=== PATIENT | male | born 1965 | race Caucasian/White ===

== ENCOUNTER 2020-09-15 11:54 | Outpatient (REF) | payer BC, SELFPAY ==
--- NOTE | 2020-09-15 12:34 | XR_ITS ---
EXAMINATION: XR LUMBOSACRAL SPINE CLINICAL INFORMATION: Low back pain COMPARISON: None TECHNIQUE: Three views of the lumbosacral spine. FINDINGS: There are 5 [id number] lumbar vertebra. There is mild narrowing of the L5-S1 disc space. No acute fracture, spondylolisthesis, or spondylolysis identified. Sacroiliac joints unremarkable. XR/XR lumbar spine 2-3V IMPRESSION: Degenerative disc disease L5-S1 level.
[2020-09-15 13:42] LABS: MANUAL DIFF FLAG NO
[2020-09-15 13:43] LABS: Basophils Percent Auto 0.9 % (0-2); Eosinophils Absolute Auto 0.1 X10*3/uL (0.0-0.4); Eosinophils Percent Auto 2.2 % (0-4); Hematocrit 46.4 % (42-52); Hemoglobin 16.1 g/dl (14.0-18.0); Imm Gran Abs Auto 0.01 X10*3/uL (0.00-0.03); Imm Gran Pct Auto 0.2 % (0.0-0.4); Lymphocytes Absolute Auto 1.2 X10*3/uL (1.2-4.9); Lymphocytes Percent Auto 25.3 % (20-40); Mean Corpuscular HGB Conc 34.7 g/dl (31.0-36.0); Mean Corpuscular Hemoglobin 32.5 pg (27.0-33.0); Mean Corpuscular Volume 93.5 fL (80-98); Mean Platelet Volume 10.2 fL (9.4-12.4); Monocytes Absolute Auto 0.4 X10*3/uL (0.1-1.2); Monocytes Percent Auto 7.6 % (2-11); Neutrophils Absolute Auto 2.9 X10*3/uL (2.0-8.3); Neutrophils Percent Auto 63.8 % (45-73); Platelet Count 252 X10*3/uL (160-400); Red Blood Count 4.96 X10*6/uL (4.60-5.80); White Blood Count 4.6 X10*3/uL (4.8-10.8)
[2020-09-15 14:04] LABS: Glucose Urine UA NEG (NEG); Leukocyte Esterase Urine NEG (NEG); Nitrite Urine NEG (NEG); Specific Gravity - Urine >= 1.030 (1.005-1.025); Urine Blood NEG (NEG); Urine Ketones 15 MG/DL (NEG); Urine Protein 1+ MG/DL (NEG-TRACE)
[2020-09-15 14:05] LABS: Appearance Urine HAZY; Color Urine YELLOW
[2020-09-15 14:08] LABS: Alanine Aminotransferase 13 U/L (0-40); Albumin Level 4.7 g/dL (3.5-5.0); Alkaline Phosphatase 41 U/L (39-117); Anion Gap 11 (12-20); Aspartate Amino Transferase 19 U/L (5-37); Bilirubin Total 0.6 mg/dL (0.0-1.0); Blood Urea Nitrogen 16 mg/dL (9-16); Calcium 9.3 mg/dL (8.4-10.2); Carbon Dioxide 28 mmol/L (22-29); Chloride 103 mmol/L (96-108); Cholesterol 189 mg/dL; Estimated Glomerular Filt Rate > 60; Glucose Fasting 95 mg/dL (60-99); HDL Cholesterol 50 mg/dL; LDL Cholesterol Calculated 127 mg/dl; Potassium 4.4 mmol/l (3.3-5.1); Sodium 138 mmol/L (135-145); Total Protein 7.1 g/dL (6.5-8.0); Triglycerides 63 mg/dL
[2020-09-15 14:15] LABS: Mucus Urine 2+ /LPF; Squamous Epithelial Cell Urine TRACE /LPF; WBC Urine 0-2 /HPF (0-4)
[2020-09-15 14:30] LABS: Prostate Specific Antigen Scr 0.52 ng/mL (<0.05-4.0)
== END 2020-09-15 11:55 | disposition home or self-care (01) ==
LOC: HO.10HDL 11:54
PROVIDERS: PCP Internal Medicine; Visit Provider Internal Medicine
DX: Z00.00 Encounter for general adult medical examination without abnormal findings (principal); M54.5 Low back pain
CPT/HCPCS: 36415; 72100; 80053; 80061; 81001; 84153; 85025; 87086

== ENCOUNTER 2022-08-05 12:08 | Outpatient (REF) | payer BC, SELFPAY ==
--- NOTE | ~2022-08-05 | XR_ITS ---
EXAMINATION: XR SHOULDER, LEFT CLINICAL INFORMATION: Left shoulder pain COMPARISON: None TECHNIQUE: AP external rotation, Grashey, scapular Y, and axillary views of the left shoulder. FINDINGS: There is mild loss of glenohumeral and AC joint space without any acute fracture, dislocation or loose bodies. The soft tissues are normal. XR/XR shoulder LT min 2V IMPRESSION: Mild degenerative changes left shoulder.
[2022-08-05 13:35] LABS: MANUAL DIFF FLAG NO
[2022-08-05 13:47] LABS: Basophils Percent Auto 0.5 % (0-2); Eosinophils Absolute Auto 0.1 X10*3/uL (0.0-0.4); Hematocrit 45.5 % (42.0-52.0); Hemoglobin 15.7 g/dl (14.0-18.0); Imm Gran Abs Auto 0.03 X10*3/uL (0.00-0.03); Imm Gran Pct Auto 0.5 % (0.0-0.4); Lymphocytes Percent Auto 16.2 % (20-40); Mean Corpuscular HGB Conc 34.5 g/dl (31.0-36.0); Mean Corpuscular Volume 95.6 fL (80.0-98.0); Monocytes Absolute Auto 0.4 X10*3/uL (0.1-1.2); Monocytes Percent Auto 6.4 % (2-11); Neutrophils Absolute Auto 4.6 x10*3/uL (2.0-8.3); Neutrophils Percent Auto 75.4 % (45-73); Platelet Count 254 X10*3/uL (160-400); Red Blood Count 4.76 X10*6/uL (4.60-5.80); Red Cell Distribution Width 13.1 % (11.0-16.0); White Blood Count 6.1 X10*3/uL (4.8-10.8)
[2022-08-05 14:15] LABS: Alanine Aminotransferase 21 U/L (0-40); Albumin Level 4.6 g/dL (3.5-5.0); Alkaline Phosphatase 43 U/L (39-117); Anion Gap 15 (12-20); Aspartate Amino Transferase 23 U/L (5-37); Bilirubin Total 0.7 mg/dL (0.0-1.0); Blood Urea Nitrogen 15 mg/dL (9-16); Calcium 9.6 mg/dL (8.4-10.2); Carbon Dioxide 27 mmol/L (22-29); Chloride 107 mmol/L (96-108); Cholesterol 201 mg/dL; Estimated Glomerular Filt Rate > 60; Glucose Fasting 93 mg/dL (60-99); HDL Cholesterol 54 mg/dL; LDL Cholesterol Calculated 136 mg/dl; Potassium 4.7 mmol/L (3.3-5.1); Sodium 144 mmol/L (135-145); Total Protein 6.7 g/dL (6.5-8.0); Triglycerides 55 mg/dL; Vitamin D 25-OH Total 25.9 ng/mL (>30)
== END 2022-08-05 12:09 | disposition home or self-care (01) ==
LOC: HO.10HDL 12:08
PROVIDERS: Visit Provider Internal Medicine
DX: Z00.00 Encounter for general adult medical examination without abnormal findings (principal); E55.9 Vitamin D deficiency, unspecified; M25.512 Pain in left shoulder
CPT/HCPCS: 36415; 73030; 80053; 80061; 82306; 85025

== ENCOUNTER 2024-09-04 15:29 | Outpatient (REF) | payer BC, SELFPAY ==
[2024-09-04 15:49] LABS: MANUAL DIFF FLAG NO
[2024-09-04 16:44] LABS: Basophils Percent Auto 0.5 % (0-2); Eosinophils Absolute Auto 0.1 X10*3/uL (0.0-0.4); Eosinophils Percent Auto 1.1 % (0-4); Hematocrit 43.5 % (42.0-52.0); Imm Gran Abs Auto 0.02 X10*3/uL (0.00-0.03); Imm Gran Pct Auto 0.4 % (0.0-0.4); Lymphocytes Absolute Auto 1.1 X10*3/uL (1.2-4.9); Lymphocytes Percent Auto 19.6 % (20-40); Mean Corpuscular HGB Conc 34.5 g/dl (31.0-36.0); Mean Corpuscular Hemoglobin 31.8 pg (27.0-33.0); Mean Corpuscular Volume 92.4 fL (80.0-98.0); Mean Platelet Volume 9.4 fL (9.4-12.4); Monocytes Absolute Auto 0.5 X10*3/uL (0.1-1.2); Monocytes Percent Auto 8.8 % (2-11); Neutrophils Percent Auto 69.6 % (45-73); Platelet Count 245 X10*3/uL (160-400); Red Blood Count 4.71 X10*6/uL (4.60-5.80); Red Cell Distribution Width 12.7 % (11.0-16.0); White Blood Count 5.7 X10*3/uL (4.8-10.8)
[2024-09-04 17:17] LABS: Albumin Level 4.4 g/dL (3.5-5.0); Anion Gap 14 (12-20); Aspartate Amino Transferase 26 U/L (5-37); Bilirubin Total 0.8 mg/dL (0.0-1.0); Blood Urea Nitrogen 22 mg/dL (9-16); Calcium 9.5 mg/dL (8.4-10.2); Carbon Dioxide 27 mmol/L (22-29); Chloride 102 mmol/L (96-108); Cholesterol 210 mg/dL (<200); Estimated Glomerular Filt Rate > 60; Glucose Fasting 95 mg/dL (60-99); HDL Cholesterol 59 mg/dL (>40); LDL Cholesterol Calculated 139 mg/dL (<100); Potassium 4.3 mmol/L (3.3-5.1); Sodium 139 mmol/L (135-145); Total Protein 6.7 g/dL (6.5-8.0); Triglycerides 63 mg/dL (<150)
[2024-09-04 17:37] LABS: Alanine Aminotransferase 21 U/L (0-40); Alkaline Phosphatase 41 U/L (39-117); Vitamin D 25-OH Total 21.1 ng/mL (>30)
== END 2024-09-04 15:30 | disposition home or self-care (01) ==
LOC: HO.LAB 15:29
PROVIDERS: PCP Internal Medicine; Visit Provider Internal Medicine
DX: E78.00 Pure hypercholesterolemia, unspecified (principal); K57.90 Diverticulosis of intestine, part unspecified, without perforation or abscess without bleeding; E55.9 Vitamin D deficiency, unspecified; Z12.5 Encounter for screening for malignant neoplasm of prostate
CPT/HCPCS: 36415; 80053; 80061; 82306; 84153; 85025

== ENCOUNTER 2024-12-04 14:48 | Outpatient (AMB) | payer BC, SELFPAY ==
--- NOTE | 2024-12-04 15:21 | AM.OFFWIN_ITS ---
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 He tried to call his PCP who could not see him and recommended zinc and vitamin-C, and Robitussin DM. He notes symptoms have been improving over the past 4-6 days. Then an increase in phlegm in the past 2 days again in his throat. He also notes with taking all this medication he feels a sense of claustrophobia, need to pace and anxiety. He denies any history of similar symptoms of anxiety. He did do 2 COVID test when he was more symptomatic which were negative. [facility] Social History Patient Tobacco Use Status: Never used Tobacco Review of Systems Const All systems reviewed & are unremarkable except as noted in HPI and below ENT Denies change in voice, Denies dysphagia, Reports post nasal drip, Denies sore throat, Denies throat swelling and Reports other (Denies voice change) GI Denies dysphagia Aller/Immun Denies throat swelling Physical Exam Vital Signs: Last Vital Signs Pulse 65 12/04/24 15:22 BP 124/80 12/04/24 15:22 Pulse Ox 95 12/04/24 15:22 Oxygen Delivery Method Room Air 12/04/24 15:22 BMI result Body Mass Index 22.3 Const General: cooperative, comfortable and no acute distress Orientation/consciousness: patient oriented x3 HEENT Head: Yes normal to inspection Ears: external ears normal and TM's normal bilaterally General nose exam: Normal external nose present and Normal nasal mucous membranes and turbinates present Face and sinus: Yes normal facial exam and Yes sinuses nontender Mouth: Normal oral and palatal mucosa present Throat: Yes posterior oropharynx normal and Yes tonsils normal Resp Effort & Inspection: normal respiratory effort Auscultation: clear to auscultation bilaterally Cardio Rate: regular rate Rhythm: regular rhythm Heart sounds: S1 normal heart sound present and S2 normal heart sound present Neuro General: patient oriented x3 Assessment & Plan Assessment & Plan (1) Acute respiratory infection: Code(s): J22 - Unspecified acute lower respiratory infection Plan: Symptoms seem to be resolving. Advised to discontinue Robitussin DM, zinc, vitamin-C as these might be contributing to his symptoms of restlessness especially the Robitussin. I did advised saline nasal spray or saline gargles as needed for postnasal drip. He could also try Mucinex single ingredient formulation if needed. I did advise him to make a follow-up with his PCP in the next few weeks for any persisting symptoms. He would also be a candidate for low-dose CT scanning with history of smoking he should discuss this with his PCP. Coding Level of Care Code New Pt Level 3 (40403) Diagnoses Acute respiratory infection J22
[2024-12-04 15:22] VITALS: BP 124/80; PULSE 65; O2SAT 95; BMI 22.3
--- OUTSIDE RECORDS SUMMARY | 2024-12-04 18:10 | XMS_ITS ---
Author Name [facility] Organization Unknown Care Team Organization Name Specialty Phone Email Start Date End Da te Office of the [employer] ([facility]) 08/10/2024
== END 2024-12-04 16:27 | disposition home or self-care (01) ==
PROVIDERS: PCP Internal Medicine; Visit Provider Physician Assistant
DX: J22 Unspecified acute lower respiratory infection (principal)

== ENCOUNTER → 2024-12-04 14:48 | Outpatient (BNVA) | payer BC, SELFPAY | PROVIDERS: PCP Internal Medicine; Visit Provider Physician Assistant ==

== ENCOUNTER 2024-12-10 09:21 | Outpatient (AMB) | payer BC, SELFPAY ==
[2024-12-10 09:23] VITALS: BP 116/70; PULSE 78; RESP 14; TEMP 36.3; O2SAT 98; BMI 22.3
--- NOTE | 2024-12-10 09:23 | A.OFFPC_ITS ---
Vital Signs 12/10/24 09:23 Height 5 ft 8 in Weight 147 lb BMI 22.3 BP 116/70 Respiration 14 Pulse 78 Pulse Source Pulse Oximeter Temp 97.4 F Temp Source Temporal Artery Scan Pulse Oximetry (%) 98 Oxygen Delivery Method Room Air Intake Visit Reasons: F/U from Urgent care Project Management It Specialist Required: No Accompanied by: Self / Same As Patient Allergies No Known Allergies Allergy (Unverified 12/10/24 09:24) Medication List - Last Reconciled 12/10/24 by Romel Jeter MD No Known Home Meds Tobacco use date assessed: 12/10/24 Dental Screening Dental Screen Date: 12/10/24 Did you have a dental visit in the last 12 months?: Yes Did you have a dental problem in the last 6 months where you did not have access to dental care?: No [facility] Medical History (Updated 12/10/24 @ 09:56 by Romel Jeter MD) Generalized anxiety disorder Hyperlipidemia, unspecified Diverticulosis Tobacco use disorder Family History (Updated 12/10/24 @ 09:30 by JASPER Mclaughlin) Mother No problems noted. Father Hyperlipidemia Social History Housing: House Patient Tobacco Use Status: Current someday Tobacco user Cigarettes Per Day: 5 service: Yes Current occupational status: retired Cognitive needs: No Hearing needs: No Vision needs: No Questionnaire PHQ-9 Over the last 2 weeks, how often have you been bothered by any of the following problems? 1. Little interest or pleasure in doing things: not at all 2. Feeling down, depressed, or hopeless: not at all 3. Trouble falling or staying asleep, or sleeping too much: several days 4. Feeling tired or having little energy: not at all 5. Poor appetite or overeating: not at all 6. Feeling bad about yourself - or that you are a failure or have let yourself or your family down: not at all 7. Trouble concentrating on things, such as reading the newspaper or watching television: not at all 8. Moving or speaking so slowly that other people could have noticed. Or the opposite - being so fidgety or restless that you have been moving around a lot more than usual: not at all 9. Thoughts that you would be better off or of hurting yourself in some way : not at all Total score: 1 Depression Screening Interpretation: Negative Depression Screening Done: Yes Source: Developed by Drs. Joss Bond, Syeda Wong, Fermin Mueller and colleagues, with an educational valeriy from [employer]. Thrive Questionnaire Date Thrive assessed: 12/10/24 I am a: Patient What is your living situation today?: I have a steady place to live Within the past 12 months, did the food you bought not last and you didn't have the money to get more?: Never true Within the past 12 months, did you worry whether your food would run out before you got money to buy more?: Never true Do you have trouble paying for medicines?: No Do you have trouble getting transportation to medical appointments?: No Do you have trouble paying your heating and electricity bill?: No Do you have trouble taking care of your child, family member or friend?: No Do you have trouble with day-to-day activities such as bathing, preparing meals, shopping, managing finances, etc.?: No Are you currently unemployed and looking for a job?: No Are you interested in more education?: No Please select the resources that you would like help with: None Currently or been in a relationship where the following occur: No concerns reported THRIVE Score: 0 AUDIT C Alcohol Use Questionnaire (AUDIT-C) 1. How often do you have a drink containing alcohol?: Never 3. How often do you have six or more drinks on one occasion?: Never Total Score: 0 ALMA-7 AMB Questionnaire ALMA-7 Date ALMA - 7 assessed: 12/10/24 Feeling nervous, anxious, or on edge: 1 = Several days Not being able to stop or control worryin = Several days Worrying too much about different things: 0 = Not at all Trouble relaxin = Several days Being so restless that it is hard to sit still: 3 = Nearly every day Becoming easily annoyed or irritable: 0 = Not at all Feeling afraid as if something awful might happen: 0 = Not at all Total ALMA-7 score (0-4 normal; 5-9 mild; 10-14 moderate; 15-21 severe): 6 Source: Developed by Deon Adamet B.W. Marvin, Fermin Mueller and colleagues, with an educational valeriy from [employer]. Physical exam (Primary Care) Vital Signs: Last Vital Signs Temp 97.4 F 12/10/24 09:23 Pulse 78 12/10/24 09:23 Resp 14 12/10/24 09:23 BP 116/70 12/10/24 09:23 Pulse Ox 98 12/10/24 09:23 Oxygen Delivery Method Room Air 12/10/24 09:23 Care Plan Goal for BP management: BP in range BMI result Body Mass Index 22.3 Tobacco/Smoking Status: Tobacco use Status Tobacco use date assessed 12/10/24 12/10/24 09:34 Patient Tobacco Use Status Current someday Tobacco 12/10/24 09:34 Are you ready to quit: No Tobacco cessation counseling provided: No PHQ-9: PHQ-9 Score PHQ-9: Total score 1 12/10/24 09:34 Depression Screening Interpretation: Negative Thrive Assessment: Date of Thrive Assessment Date Thrive assessed 12/10/24 12/10/24 09:34 Currently or been in a relationship where the following occur: No concerns reported Coding Level of Care Code Est Pt Level 4 (54933) Complex EM visit Add On G2211 Diagnoses Tobacco use disorder F17.200 Generalized anxiety disorder F41.1 Acute bronchitis J20.9 Assessment & Plan Assessment & Plan (1) Tobacco use disorder: Code(s): F17.200 - Nicotine dependence, unspecified, uncomplicated Category: Medical Plan: Counselling to quit smoking done. Screening for lung cancer initiated. Started tobacco use at age 20, 3/4 ppd for 25 yrs (2) Generalized anxiety disorder: Code(s): F41.1 - Generalized anxiety disorder Category: Medical Plan: Declining anxiolytics. TSH should be checked. Worried about Lung Cancer due to history of smoking and current symptoms (3) Acute bronchitis: Code(s): J20.9 - Acute bronchitis, unspecified Plan: Xray ordered. WIll call with bw results. Plan History of Present Illness The patient is a 59-year-old male presenting with persistent restlessness and anxiety symptoms after a recent respiratory infection. Symptoms commenced three weeks prior on November 19 with nasal drip and cough, worsening through November 26 with difficult mucus expulsion. The patient experienced extreme restlessness, adopted increased physical activity, and struggled with insomnia. Previous interventions involved zinc, vitamin C, and Robitussin DM, with eventua l partial symptomatic relief after switching to Mucinex. The patient has a chronic history of smoking beginning at age 20, with a gradual reduction to an average of five cigarettes daily. Recent weight loss of nine pounds correlates with decreased appetite and heightened activity. Swallowing difficulties and a feeling of dryness were reported, necessitating further examination to rule out severe conditions. 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 - Reports regular exercise, including walking and light weight training. - Significant smoking history, currently reduced to about five cigarettes per day, with a history of up to three-quarters of a pack per day. - Started smoking at age 20. - No alcohol use or abuse of other substances. - Lives with a girlfriend, who is also a smoker. Review of Systems - Respiratory: Reports nasal drip, cough, and difficulty swallowing on occasion. - Psychiatric: Reports restlessness, pacing, sleep disturbances, and feelings of claustrophobia, but denies racing thoughts. Physical Exam General: Cooperative and healthy appearing Nutritional Appearance: Well nourished Orientation/consciousness: Patient oriented x3 Limitations: No limitations Head: Normal to inspection General: Appearance normal, both eyes and all related structures Neck: Normal visual inspection Chest: Normal palpation of entire chest wall Respiratory: Normal respiratory effort Neurology: Patient oriented x3 Results - Possible RSV as per visit to walk-in clinic. - Discussion about a potential lung cancer screening (CT scan) due to smoking history. Plan The management plan includes evaluation with a chest X-ray to investigate any serious respiratory pathology due to persisting symptoms post possible RSV infection, along with a short-term anxiolytic treatment like alprazolam to manage acute anxiety and restlessness. Continuation of current physical activity and behavior modification for smoking cessation are recommended. Consideration for lung cancer screening via low-dose CT scan is advised based on the patient's smoking history and the anxiety surrounding potential health risks. Patient was informed and verbally consented to the use of an ambient scribe for clinic note documentation during this visit. Discussion Notes I discussed with the patient the concerns regarding the persistent restlessness and anxiety following the recent respiratory infection, likely viral in nature. The possibility of an underlying respiratory issue was raised, leading to a recommendation for a chest X-ray. The potential benefits and risks of short-term anxiolytic use to help disrupt the cycle of anxiety were reviewed. We explored the significance of maintaining an active lifestyle and strategies to sustain reduced smoking habits, along with the importance of adequate symptom control. The potential for a low-dose CT scan for lung cancer screening was deliberated, addressing concerns about the procedure, including its safety, minimal enclosed space requirement, and non-invasive nature to mitigate any anxiety related to claustrophobia. The patient agreed to these evaluations and approaches and will pursue the recommended diagnostics and follow-up measures. Patient Instructions - Continue with Mucinex, as discussed. - Undergo a chest X-ray at your earliest convenience. - Start the prescribed short-course anxiolytic if feeling overwhelmed. - Maintain regular physical activity as tolerated. - Consider lung cancer screening with a low-dose CT scan. - Focus on sustaining reduced smoking levels, aiming for further reduction. - Monitor for any worsening symptoms and seek immediate care if necessary. - Follow up as directed for reassessment and management adjustment. Orders: Orders Erythrocyte Sedimentation Rate Today F17.200 - Nicotine dependence, unspecified, uncomplicated, F41.1 - Generalized anxiety disorder, J20.9 - Acute bronchitis, unspecified Thyroid Stimulating Hormone Today F17.200 - Nicotine dependence, unspecified, uncomplicated, F41.1 - Generalized anxiety disorder, J20.9 - Acute bronchitis, unspecified Complete Blood Count no Diff Today F17.200 - Nicotine dependence, unspecified, uncomplicated, F41.1 - Generalized anxiety disorder, J20.9 - Acute bronchitis, unspecified Basic Metabolic Panel Today F17.200 - Nicotine dependence, unspecified, uncomplicated, F41.1 - Generalized anxiety disorder, J20.9 - Acute bronchitis, unspecified XR chest 2V Today R05.9 - Cough, unspecified Referrals Lung Cancer Screening Referral F17.200 - Nicotine dependence, unspecified, uncomplicated
== END 2024-12-10 09:55 | disposition home or self-care (01) ==
LOC: HO.HMCHD 09:21
PROVIDERS: PCP Internal Medicine; Visit Provider Internal Medicine
DX: F17.200 Nicotine dependence, unspecified, uncomplicated (principal); F41.1 Generalized anxiety disorder; J20.9 Acute bronchitis, unspecified

== ENCOUNTER 2024-12-10 09:21 | Outpatient (REF) | payer BC, SELFPAY ==
--- NOTE | ~2024-12-10 | XR_ITS ---
CLINICAL HISTORY: R05.9 - Cough, unspecified 2 view chest x-ray Comparison: None Findings: No consolidation or effusion. Heart size is normal. No acute fracture. IMPRESSION: 1. No acute cardiopulmonary abnormality. This document has been electronically signed by: Graciela Sultana on 12/11/2024 08:55:30
[2024-12-10 11:03] LABS: Hemoglobin 14.3 g/dl (14.0-18.0); Platelet Count 304 X10*3/uL (160-400); Red Blood Count 4.47 X10*6/uL (4.60-5.80); Red Cell Distribution Width 13.6 % (11.0-16.0); White Blood Count 3.9 X10*3/uL (4.8-10.8)
[2024-12-10 11:38] LABS: Anion Gap 13 (12-20); Blood Urea Nitrogen 21 mg/dL (9-16); Calcium 9.6 mg/dL (8.4-10.2); Carbon Dioxide 27 mmol/L (22-29); Chloride 106 mmol/L (96-108); Estimated Glomerular Filt Rate > 60; Glucose Random 102 mg/dL (60-115); Potassium 4.5 mmol/L (3.3-5.1); Sodium 141 mmol/L (135-145)
[2024-12-10 11:49] LABS: Erythrocyte Sedimentation Rate 2 MM/HR (0-15)
[2024-12-10 11:56] LABS: Thyroid Stimulating Hormone 0.99 uIU/mL (0.32-4.0)
== END 2024-12-10 09:22 | disposition home or self-care (01) ==
LOC: HO.XRAY 09:21
PROVIDERS: PCP Internal Medicine; Visit Provider Internal Medicine
DX: J20.9 Acute bronchitis, unspecified (principal); F17.200 Nicotine dependence, unspecified, uncomplicated; F41.1 Generalized anxiety disorder; R05.9 Cough, unspecified
CPT/HCPCS: 36415; 71046; 80048; 84443; 85027; 85652

== ENCOUNTER → 2024-12-10 10:23 | Outpatient (BNV) | payer BC, SELFPAY | PROVIDERS: PCP Internal Medicine; Visit Provider Radiology Vascular & Interventional Radiology | DX: R05.9 Cough, unspecified (principal) | CPT/HCPCS: 71046 ==

== ENCOUNTER 2024-12-31 09:57 | Outpatient (AMB) | payer BC, SELFPAY ==
[2024-12-31 10:16] VITALS: BP 118/70; PULSE 72; TEMP 36.4; O2SAT 99; BMI 22.2
--- NOTE | 2024-12-31 10:16 | A.OFFPC_ITS ---
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 Father Hyperlipidemia Social History Housing: House Patient Tobacco Use Status: Current someday Tobacco user Cigarettes Per Day: 5 e-Cigarette/Vaping Use: Former Use service: Yes Current occupational status: retired Cognitive needs: No Hearing needs: No Vision needs: Yes (reading glasses) Questionnaire PHQ-9 Over the last 2 weeks, how often have you been bothered by any of the following problems? 1. Little interest or pleasure in doing things: not at all 2. Feeling down, depressed, or hopeless: not at all 3. Trouble falling or staying asleep, or sleeping too much: not at all 4. Feeling tired or having little energy: not at all 5. Poor appetite or overeating: not at all 6. Feeling bad about yourself - or that you are a failure or have let yourself or your family down: not at all 7. Trouble concentrating on things, such as reading the newspaper or watching television: not at all 8. Moving or speaking so slowly that other people could have noticed. Or the opposite - being so fidgety or restless that you have been moving around a lot more than usual: not at all 9. Thoughts that you would be better off or of hurting yourself in some way: not at all Total score: 0 Source: Developed by Drs. Joss Bond, Fermin Hilton and colleagues, with an educational valeriy from [employer]. Thrive Questionnaire Date Thrive assessed: 12/31/24 I am a: Patient Within the past 12 months, did the food you bought not last and you didn't have the money to get more?: Never true Within the past 12 months, did you worry whether your food would run out before you got money to buy more?: Never true Do you have trouble paying for medicines?: No Do you have trouble getting transportation to medical appointments?: No Do you have trouble paying your heating and electricity bill?: No Do you have trouble taking care of your child, family member or friend?: No Do you have trouble with day-to-day activities such as bathing, preparing meals, shopping, managing finances, etc.?: No Are you currently unemployed and looking for a job?: No Are you interested in more education?: No THRIVE Score: 0 AUDIT C Alcohol Use Questionnaire (AUDIT-C) 1. How often do you have a drink containing alcohol?: Never 3. How often do you have six or more drinks on one occasion?: Never Total Score: 0 ALMA-7 AMB Questionnaire ALMA-7 Date ALMA - 7 assessed: 12/31/24 Feeling nervous, anxious, or on edge: 0 = Not at all Not being able to stop or control worryin = Not at all Worrying too much about different things: 0 = Not at all Trouble relaxin = Not at all Being so restless that it is hard to sit still: 0 = Not at all Becoming easily annoyed or irritable: 0 = Not at all Feeling afraid as if something awful might happen: 0 = Not at all Total ALMA-7 score (0-4 normal; 5-9 mild; 10-14 moderate; 15-21 severe): 0 Source: Developed by Drs. Joss Bond, Fermin Hilton and colleagues, with an educational valeriy from [employer]. Physical exam (Primary Care) Vital Signs: Last Vital Signs Temp 97.5 F 12/31/24 10:16 Pulse 72 12/31/24 10:16 BP 118/70 04/07/25 10:16 Pulse Ox 99 12/31/24 10:16 Oxygen Delivery Method Room Air 12/31/24 10:16 BMI result Body Mass Index 22.2 Tobacco/Smoking Status: Tobacco use Status Tobacco use date assessed 12/31/24 12/31/24 10:27 Patient Tobacco Use Status Current someday Tobacco 12/31/24 10:27 e-Cigarette/Vaping Use Former Use 12/31/24 10:27 PHQ-9: PHQ-9 Score PHQ-9: Total score 0 12/31/24 10:27 Thrive Assessment: Date of Thrive Assessment Date Thrive assessed 12/31/24 12/31/24 10:27 Coding Level of Care Code Est Pt Level 4 (10849) Complex EM visit Add On G2211 Diagnoses Generalized anxiety disorder F41.1 Assessment & Plan Assessment & Plan (1) Generalized anxiety disorder: Code(s): F41.1 - Generalized anxiety disorder Category: Medical Plan: Trazodone and Citalopram called in. Counselling for 15 minutes done. Re visit in 30 days Plan History of Present Illness The patient is a 59-year-old male presenting with complaints of generalized anxiety and insomnia. These symptoms have developed after recovering from a suspected respiratory illness, believed to be RSV. Currently, his status includes persistent anxiety-related restlessness and difficulty sleeping, disrupting his nighttime routine from approximately eight to nine hours down to five hours of sleep. Additional symptoms include interrupted sleep patterns, task incompletion, and restlessness during the day. 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 - Denies alcohol and drug use. - Smokes tobacco but did not specify current patterns. - Attempts dietary changes for weight gain, with recent increased carbohydrate intake. - Not specified to be physically active but expressed concern for weight loss likely related to anxiety and dietary intake changes. Review of Systems Physical Exam General: Cooperative and healthy appearing Nutritional Appearance: Well nourished Orientation/consciousness: Patient oriented x3 Limitations: No limitations Head: Normal to inspection General: Appearance normal, both eyes and all related structures Neck: Normal visual inspection Chest: Normal palpation of entire chest wall Respiratory: Normal respiratory effort Neurology: Patient oriented x3 Results Plan The plan is to initiate treatment with Trazodone 50 mg and Citalopram 10 mg, to be taken nightly as a consistent regimen to address generalized anxiety disorder and insomnia. Both medications are expected to work synergistically, with Trazodone assisting with sleep and Citalopram targeting broader anxiety symptoms over time. Follow-up in one month will provide an opportunity to evaluate response and adjust treatment as necessary. Patient was informed and verbally consented to the use of an ambient scribe for clinic note documentation during this visit. Discussion Notes I discussed with the patient that the management of his generalized anxiety disorder and insomnia involves starting with Trazodone and Citalopram. These medications address neurotransmitter imbalances and require daily adherence. Potential side effects were detailed, including possible transient sensations of awkwardness upon initiation. Informed consent included understanding that initial adjustments could occur as the body adapts. I scheduled a follow-up in one month, outlining the need to monitor therapeutic effects and adjust treatment as appropriate. Risks and benefits of treatment were thoroughly explained alongside possible adjunctive interventions like behavioral therapy for comprehensive care. Patient Instructions - Take Trazodone 50 mg and Citalopram 10 mg every evening. - Continue your regular activities but monitor for any side effects. - Return for follow-up in one month to assess response to medications. - Report any severe side effects or inability to tolerate medications to me promptly. - Try to maintain a consistent sleep routine and dietary habits. - Do not alter medication dosage without consulting me.
== END 2024-12-31 10:55 | disposition home or self-care (01) ==
LOC: HO.HMCHD 09:57
PROVIDERS: PCP Internal Medicine; Visit Provider Internal Medicine
DX: F41.1 Generalized anxiety disorder (principal)

== ENCOUNTER → 2024-12-31 09:57 | Outpatient (BNVA) | payer BC, SELFPAY | PROVIDERS: PCP Internal Medicine; Visit Provider Internal Medicine | DX: Z13.89 Encounter for screening for other disorder (principal) ==

== ENCOUNTER 2025-01-25 09:31 | Outpatient (AMB) | payer BC, SELFPAY ==
--- NOTE | 2025-01-25 07:48 | MHC.OFFVIS ---
Intake Visit Reasons: Current Smoker Allergies No Known Allergies Allergy (Unverified 12/31/24 10:17) HPI HPI Current Smoker: Details: Initial visit for this 59yo smoker with a 30PYH. Patient started smoking at age 19 for 40 years at 3/4ppd. He recently quit 01/18/25. . Denies marijuana use. Denies second hand smoke exposure. Denies exposure to chemicals or substances like asbestos. . Reports family history of lung cancer. maternal grandfather at 75 Denies personal history of cancers. Denies chest CT in last year. . Denies recent travel outside the [place]. Denies recent respiratory illness or recent hospitalization for respiratory issues. Hsitory of testing positive for COVID. Admits receiving COVID Vaccine. . Denies fever, chills, new/worsening cough, hemoptysis, hoarseness or dysphagia. Denies significant chest pain, significant dyspnea or unintentional weight loss. Patient Lung Cancer Screening Questionnaire reviewed with patient by provider. . Shared Decision Making Completed. Patient meets criteria. Discussed in detail with patient, the risk vs benefit of LDCT screening. Patient consents to proceed with scan. Discussed and encouraged continued smoking cessation. [facility] Medical History (Updated 01/25/25 @ 09:53 by Melissa Valdez PA-C) Hyperlipidemia, unspecified Diverticulosis Vitamin D insufficiency Generalized anxiety disorder Nicotine dependence, cigarettes, uncomplicated Surgical History (Updated 01/11/25 @ 15:05 by Romel Jeter MD) History of colonoscopy (02/03/18) Family History Mother No problems noted. Father Hyperlipidemia Social History (Updated 01/25/25 @ 09:54 by Melissa Valdez PA-C) Housing: House Patient Tobacco Use Status: Former Tobacco user Years Smoked: (onset 19yo, 3/4ppd x 40yrs, 30pyh, quit 01/18/25) e-Cigarette/Vaping Use: Former Use service: Yes Current occupational status: retired Cognitive needs: No Hearing needs: No Vision needs: Yes (reading glasses) Assessment & Plan Assessment & Plan (1) Nicotine dependence, cigarettes, uncomplicated: Comment: (onset 19yo, 3/4ppd x 40yrs, 30pyh, quit 01/18/25) Code(s): F17.210 - Nicotine dependence, cigarettes, uncomplicated Category: Medical Plan: - SDM visit completed today in office. - Patient meets criteria for LDCT for lung cancer screening purposes and is asymptomatic. - Smoking cessation counseling offered. Patients can always call [phone]. - Will arrange for a LDCT scan of the chest for screening purposes at [facility]. - Risks, benefits, and alternatives were discussed in detail and the patient agrees to proceed. - Risks discussed include but are not limited to: radiation exposure, anxiety during testing and while awaiting results, false negatives, false positives and possibility of additional intervention such as further imaging or surgical procedures for benign disease. - Benefits are obviously detection of lung cancer at an early stage which can lead to improved outcomes. - Discussed the importance of screening program compliance with adherence to yearly LDCT scan as scheduled - or sooner interval scans for personalized screening regimen. - Discussed follow up plan. Our office will send a letter discussing results and if needed set up phone call and office visit based on CT findings. - Patient educated on results categorization and the management decisions for suspicious findings potentially found on the screening LDCT scan. Any patient with a Lung RADS score of 3 or 4 will be reviewed by a multidisciplinary team at [facility] to form a plan of action in regards to scan findings. - If further work up is warranted for a suspicious lung finding this will be followed by the Lung Cancer Screening program in conjunction with the Thoracic Surgery Department at [facility]. - A copy of the office note and LDCT will be sent to the patient's PCP - as well as documentation on any associated further plans of care. - Incidental findings on LDCT are the PCP's responsibility. These findings are indicated with an S finding on the LDCT Assessment. A note discussing the findings will be sent to the PCP who is then responsible for further management. - All questions answered.? Coding Level of Care Code Lung Cancer Screening G0296 Diagnoses Nicotine dependence, cigarettes, uncomplicated F17.210
== END 2025-01-25 09:53 | disposition home or self-care (01) ==
LOC: HO.HPS 09:32
PROVIDERS: PCP Internal Medicine; Referring Provider Internal Medicine; Visit Provider Physician Assistant Medical
DX: F17.210 Nicotine dependence, cigarettes, uncomplicated (principal)
CPT/HCPCS: G0296

== ENCOUNTER 2025-01-25 09:54 | Outpatient (REF) | payer BC, SELFPAY ==
--- NOTE | ~2025-01-25 | CT_ITS ---
CLINICAL HISTORY: F17.210 - Nicotine dependence, cigarettes, uncomplicated CT lung cancer screening (LDCT) Comparison: None Technique: Axial CT images of the chest using low-dose technique. Referring provider counseled the patient on shared decision-making for LDCT screening. Additional counseling was provided on smoking cessation. Effective radiation dose total: DLP 40.1 mGycm, CTDIvol 1.1 mGy. Findings: Lung: Summary of nodules including size/character/location/image# of the most suspicious nodules (highest category), degree of emphysema, other relevant pulmonary/pleural findings. Coronary artery calcifications: none Limited upper abdomen: Unremarkable Other: Changes of pulmonary bullous disease. Impression: Category 1: Normal; continue annual screening Category 1: Normal; continue annual screening Category 2: Benign appearance or behavior, continue annual screening Category 3: Probably benign, [address] recommended Category 4A: Suspicious, [address] recommended; may consider PET/CT Category 4B: Suspicious, Additional diagnostics and/or tissue sampling recommended Category 4X: Suspicious, Additional diagnostics and/or tissue sampling recommended Category 0: Recalls (incomplete screen due to Incomplete coverage, Noise, Respiratory motion, Expiration, Obscured by acute abnormality) This document has been electronically signed by: Bang Ochoa MD on 01/26/2025 08:24:25
== END 2025-01-25 09:55 | disposition home or self-care (01) ==
LOC: HO.CT 09:54
PROVIDERS: PCP Internal Medicine; Visit Provider Physician Assistant Medical
DX: Z12.2 Encounter for screening for malignant neoplasm of respiratory organs (principal); F17.210 Nicotine dependence, cigarettes, uncomplicated
CPT/HCPCS: 71271

== ENCOUNTER → 2025-01-25 09:59 | Outpatient (BNV) | payer BC, SELFPAY | PROVIDERS: PCP Internal Medicine; Visit Provider Specialist | DX: F17.210 Nicotine dependence, cigarettes, uncomplicated (principal) | CPT/HCPCS: 71271 ==

== ENCOUNTER 2025-01-30 11:34 | Outpatient (AMB) | payer BC, SELFPAY ==
--- NOTE | 2025-01-30 11:44 | MHC.PC.OV ---
Vital Signs 01/30/25 11:45 Height 5 ft 8 in Weight 69.853 kg BMI 23.4 BP 120/80 Blood Pressure Location Rt brachial Pulse 59 Pulse Source Pulse Oximeter Temp 97.6 F Temp Source Axillary Pulse Oximetry (%) 99 Oxygen Delivery Method Room Air Intake Visit Reasons: 1 Month F/U Special Education Curriculum Specialist Required: No Accompanied by: Self / Same As Patient Allergies No Known Allergies Allergy (Verified 01/30/25 11:45) Tobacco use date assessed: 01/30/25 Dental Screening Dental Screen Date: 01/30/25 Did you have a dental visit in the last 12 months?: Yes Did you have a dental problem in the last 6 months where you did not have access to dental care?: No HPI HPI Comments History of Present Illness Details 59-year-old male with history of anxiety, insomnia, and cigarette smoking presents to the office for follow-up. He was seen in the office last month due to significant anxiety as well as insomnia. He was started on escitalopram as well as trazodone. He states the trazodone has helped with sleep, he is getting about 6.5-8 hours of sleep nightly now and does feel rested in the morning. He states the escitalopram did not make him feel well causing sweating, worsening insomnia. He stopped the medication for 3 days with some improvement and then trialed the medication again which resulted in the same effects. He has not been taking the medication since. He also feels that the significant lifestyle changes that he had made for weight loss including a very low carb diet and increase exercise may have been contributory. He has been working on gaining some of his weight back (normal BMI) and has felt significantly better. He does drink 2 cups of coffee, a total of 12 oz daily. No alcohol or stimulants. He did quit smoking about 2 weeks ago and has been using nicotine pouches. He did just undergo lung cancer screening with results showing category 1, no pulmonary nodules, follow-up 1 year. [facility] Medical History (Updated 01/25/25 @ 09:53 by Melissa Valdez PA-C) Hyperlipidemia, unspecified Diverticulosis Vitamin D insufficiency Generalized anxiety disorder Nicotine dependence, cigarettes, uncomplicated Surgical History (Updated 01/11/25 @ 15:05 by Romel Jeter MD) History of colonoscopy (02/03/18) Family History (Updated 01/30/25 @ 11:53 by Katie Dougherty MA) Mother No problems noted. Father Hyperlipidemia Social History (Updated 01/25/25 @ 09:54 by Melissa Valdez PA-C) Housing: House Patient Tobacco Use Status: Former Tobacco user Years Smoked: (onset 19yo, 3/4ppd x 40yrs, 30pyh, quit 01/18/25) e-Cigarette/Vaping Use: Former Use service: Yes Current occupational status: retired Cognitive needs: No Hearing needs: No Vision needs: Yes (reading glasses) Questionnaire PHQ-9 Over the last 2 weeks, how often have you been bothered by any of the following problems? 1. Little interest or pleasure in doing things: not at all 2. Feeling down, depressed, or hopeless: not at all 3. Trouble falling or staying asleep, or sleeping too much: not at all 4. Feeling tired or having little energy: not at all 5. Poor appetite or overeating: not at all 6. Feeling bad about yourself - or that you are a failure or have let yourself or your family down: not at all 7. Trouble concentrating on things, such as reading the newspaper or watching television: not at all 8. Moving or speaking so slowly that other people could have noticed. Or the opposite - being so fidgety or restless that you have been moving around a lot more than usual: not at all 9. Thoughts that you would be better off or of hurting yourself in some way: not at all Total score: 0 Source: Developed by Drs. Joss Bond, Syeda Wong, Fermin Mueller and colleagues, with an educational valeriy from [employer]. Thrive Questionnaire Date Thrive assessed: 01/30/25 I am a: Patient Within the past 12 months, did the food you bought not last and you didn't have the money to get more?: Never true Within the past 12 months, did you worry whether your food would run out before you got money to buy more?: Never true Do you have trouble paying for medicines?: No Do you have trouble getting transportation to medical appointments?: No Do you have trouble paying your heating and electricity bill?: No Do you have trouble taking care of your child, family member or friend?: No Do you have trouble with day-to-day activities such as bathing, preparing meals, shopping, managing finances, etc.?: No Are you currently unemployed and looking for a job?: No Are you interested in more education?: No THRIVE Score: 0 AUDIT C Alcohol Use Questionnaire (AUDIT-C) 1. How often do you have a drink containing alcohol?: Never 3. How often do you have six or more drinks on one occasion?: Never Total Score: 0 ALMA-7 AMB Questionnaire ALMA-7 Date ALMA - 7 assessed: 01/30/25 Feeling nervous, anxious, or on edge: 0 = Not at all Not being able to stop or control worryin = Not at all Worrying too much about different things: 0 = Not at all Trouble relaxin = Not at all Being so restless that it is hard to sit still: 0 = Not at all Becoming easily annoyed or irritable: 0 = Not at all Feeling afraid as if something awful might happen: 0 = Not at all Total ALMA-7 score (0-4 normal; 5-9 mild; 10-14 moderate; 15-21 severe): 0 Source: Developed by Drs. Joss Bond, Syeda Wong, Fermin Mueller and colleagues, with an educational valeriy from [employer]. Review of Systems Const All systems reviewed & are unremarkable except as noted in HPI and below Physical exam (Primary Care) Vital Signs: Last Vital Signs Temp 97.6 F 01/30/25 11:45 Pulse 59 01/30/25 11:45 BP 120/80 01/30/25 11:45 Pulse Ox 99 01/30/25 11:45 Oxygen Delivery Method Room Air 01/30/25 11:45 BMI result Body Mass Index 23.4 Tobacco/Smoking Status: Tobacco use Status Tobacco use date assessed 01/30/25 01/30/25 11:53 Patient Tobacco Use Status Former Tobacco user 01/30/25 11:47 e-Cigarette/Vaping Use Former Use 01/30/25 11:47 PHQ-9: PHQ-9 Score PHQ-9: Total score 0 01/30/25 12:14 Thrive Assessment: Date of Thrive Assessment Date Thrive assessed 01/30/25 01/30/25 11:53 Const Other: Constitutional - Awake and Alert, No apparent distress Skin - Warm/Dry Psychological - Appropriate affect. Not anxious appearing Coding Level of Care Code Est Pt Level 4 (17523) Complex EM visit Add On G2211 Diagnoses Generalized anxiety disorder F41.1 Hyperlipidemia, unspecified E78.5 Nicotine dependence, cigarettes, uncomplicated F17.210 Assessment & Plan Assessment & Plan (1) Generalized anxiety disorder: Code(s): F41.1 - Generalized anxiety disorder Category: Medical Plan: Stable. Can continue off of escitalopram at this time. Can continue trazodone as needed for insomnia. Recommend continuing with coping mechanisms/lifestyle changes that have been improving symptoms. Also discussed the possibility of symptoms being related to low testosterone. He declines testing at this time but can consider in the future should symptoms recur. TSH level within normal limits, no hyperthyroidism that could be contributing to symptoms (2) Hyperlipidemia, unspecified: Code(s): E78.5 - Hyperlipidemia, unspecified Category: Medical Plan: Not at goal. Total cholesterol 210, LDL 139, goal less than 100. ASCVD 10 year risk 5.5%. Continue with healthy lifestyle. Will recheck lipid profile at physical exam (3) Nicotine dependence, cigarettes, uncomplicated: Comment: (onset 19yo, 3/4ppd x 40yrs, 30pyh, quit 01/18/25) Code(s): F17.210 - Nicotine dependence, cigarettes, uncomplicated Category: Medical Plan: In early remission in last 2 weeks. Can continue with nicotine replacement therapy. Reviewed lung cancer screening CT without any significant findings, category 1. Follow-up in 1 year for repeat testing Plan Follow-up for physical exam Medications: Changed From trazodone 50 mg PO BEDTIME 90 tabs 1RF To trazodone 50 mg PO BEDTIME PRN 90 tabs 1RF insomnia
[2025-01-30 11:45] VITALS: BP 120/80; PULSE 59; TEMP 36.4; O2SAT 99; BMI 23.4
== END 2025-01-30 13:12 | disposition home or self-care (01) ==
LOC: HO.HMCHD 11:35
PROVIDERS: PCP Internal Medicine; Visit Provider Internal Medicine
DX: F41.1 Generalized anxiety disorder (principal); E78.5 Hyperlipidemia, unspecified; F17.210 Nicotine dependence, cigarettes, uncomplicated

== ENCOUNTER → 2025-01-30 11:34 | Outpatient (BNVA) | payer BC, SELFPAY | PROVIDERS: PCP Internal Medicine; Visit Provider Internal Medicine ==

== ENCOUNTER 2025-08-30 09:18 | Outpatient (AMB) | payer BC, SELFPAY ==
--- NOTE | 2025-08-30 09:26 | A.OFFPC_ITS ---
Vital Signs 08/30/25 09:29 Height 5 ft 8 in Weight 76.714 kg BMI 25.7 BP 110/70 Blood Pressure Location Lt brachial Position Sitting Respiration 16 Pulse 68 Pulse Source Pulse Oximeter Temp 96.8 F Temp Source Temporal Artery Scan Pulse Oximetry (%) 97 Oxygen Delivery Method Room Air Intake Visit Reasons: Annual ARA / Dr Souza / Dr Madsen Puncher Required: No Accompanied by: Self / Same As Patient Allergies No Known Allergies Allergy (Verified 08/30/25 09:27) Medication List - Last Reconciled 08/30/25 by WESTON Hanson No Known Home Meds Tobacco use date assessed: 01/30/25 Dental Screening Dental Screen Date: 08/30/25 Did you have a dental visit in the last 12 months?: Yes Did you have a dental problem in the last 6 months where you did not have access to dental care?: No Was dental information given to patient?: Patient has dentist HPI HPI Comments History of Present Illness Details 60 year old male with history of hld and vitmain d deficiency presenting for annual physical exam. Lives with girlfriend and feels safe there. Healthy diet. Exercising most days of the week. He is a former smoker. Rare alcohol use. No illicit drug use or marijuana. 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 Retired 12 years ago. History anxiety- short lived episodes related to significant reduction in carbohydrate intake. Once he began eating more, episode resolved. Has regained the weight he lost in 2 weeks. Insomnia has also resolved. No longer on escitalopram or trazodone. Reports never actually took the escitalopram concern for side effects History cigarettes smoking- quit 01/18. 30 pack year history. Using nicotine pouches. Undergoes lung cancer screening- cat 1, no nodules, 1 year follow up anxiety- last year. ?r/t diet protein, no carbs. significant weight loss HLD-not on statin. Last LDL 139 Concerns: None Health Maintenance: Lung cancer screenings as above Diet and exercise as above Colonoscopy 02/10, 10 year follow up- [place] Due for eye exams- reading glasses only Dental exams twice yearly Reviewed past medical, surgical, social, family history ROS: General: No fevers, malaise, unintentional weight loss HEENT: No blurred vision, diplopia. No sore throat, nasal congestion, rhinorrhea, sinus pain, ear pain. No hearing loss Neck - no adenopathy Cardiovascular: No chest pain, palpitations, or leg edema Respiratory: No shortness of breath, wheezing, cough GI: No dysphagia, odynophagia, globus sensation. No abdominal pain, nausea, vomiting, diarrhea, constipation, melena, hematochezia : No dysuria, hematuria, increased urinary frequency, decreased urinary output. No testicular swelling or pain. No penile discharge MSK: No myalgia, back pain, arthralgias Neuro: No headaches, weakness, paresthesias Psych: no depression/anxiery. No AH/VH. No SI/HI Skin: No rashes or lesions EXAM: Constitutional - Awake and Alert, No apparent distress Eyes - PERRLA, EOMI. Anicteric Ears - external ears normal, canals clear, TMs intact and pearly morales with good cone of light Nose- septum midline, nares clear, no sinus tenderness Mouth/throat- mucosa moist, tongue and uvula midline, no erythema/edema or tonsillar adenopathy. Neck-trachea midline, thyroid symmetric without palpable nodules, no adenopathy Cardiovascular - S1S2, RRR, No edema Respiratory - Normal lung expansion, Normal respiratory effort, No respiratory distress, CTA bilaterally Gastrointestinal - NT / ND; +BS; No rebound or guarding - No CVA tenderness Extremities - no calf tenderness bilaterally, no swelling Musculoskeletal - Normal inspection, normal ROM Skin - Warm/Dry, no concerning lesions Neurological - Alert & oriented x3, CN II-XII in tact, 5/5 strength BUE and BLE, 2+ patellar reflexes, sensation intact Psychological - Appropriate affect [facility] Medical History (Updated 08/31/25 @ 12:25 by WESTON Hanson) Episode of anxiety Hyperlipidemia, unspecified Diverticulosis Vitamin D insufficiency Nicotine dependence, cigarettes, uncomplicated Surgical History History of colonoscopy (02/03/18) Family History Mother No problems noted. Father Hyperlipidemia Maternal Grandfather Lung cancer Social History Housing: House Patient Tobacco Use Status: Former Tobacco user Tobacco use type: Smokeless Tobacco (3mg nicotine pouches) Years Smoked: (onset 19yo, 3/4ppd x 40yrs, 30pyh, quit 01/18/25) e-Cigarette/Vaping Use: Former Use service: Yes Current occupational status: retired Cognitive needs: No Hearing needs: No Vision needs: Yes (reading glasses) Questionnaire PHQ-9 Over the last 2 weeks, how often have you been bothered by any of the following problems? 1. Little interest or pleasure in doing things: not at all 2. Feeling down, depressed, or hopeless: not at all 3. Trouble falling or staying asleep, or sleeping too much: not at all 4. Feeling tired or having little energy: not at all 5. Poor appetite or overeating: not at all 6. Feeling bad about yourself - or that you are a failure or have let yourself or your family down: not at all 7. Trouble concentrating on things, such as reading the newspaper or watching television: not at all 8. Moving or speaking so slowly that other people could have noticed. Or the opposite - being so fidgety or restless that you have been moving around a lot more than usual: not at all 9. Thoughts that you would be better off or of hurting yourself in some way: not at all Total score: 0 Source: Developed by Drs. Joss Bond, Syeda Wong, Fermin Mueller and colleagues, with an educational valeriy from [employer]. Thrive Questionnaire Date Thrive assessed: 08/30/25 I am a: Patient What is your living situation today?: I have a steady place to live Within the past 12 months, did the food you bought not last and you didn't have the money to get more?: Never true Within the past 12 months, did you worry whether your food would run out before you got money to buy more?: Never true Do you have trouble paying for medicines?: No Do you have trouble getting transportation to medical appointments?: No Do you have trouble paying your heating and electricity bill?: No Do you have trouble taking care of your child, family member or friend?: No Do you have trouble with day-to-day activities such as bathing, preparing meals, shopping, managing finances, etc.?: No Are you currently unemployed and looking for a job?: No Are you interested in more education?: No THRIVE Score: 0 AUDIT C Alcohol Use Questionnaire (AUDIT-C) 1. How often do you have a drink containing alcohol?: Monthly or less 2. How many drinks containing alcohol do you have on a typical day when you are drinking?: 1 or 2 3. How often do you have six or more drinks on one occasion?: Never Total Score: 1 ALMA-7 AMB Questionnaire ALMA-7 Date ALMA - 7 assessed: 08/30/25 Feeling nervous, anxious, or on edge: 0 = Not at all Not being able to stop or control worryin = Not at all Worrying too much about different things: 0 = Not at all Trouble relaxin = Not at all Being so restless that it is hard to sit still: 0 = Not at all Becoming easily annoyed or irritable: 0 = Not at all Feeling afraid as if something awful might happen: 0 = Not at all Total ALMA-7 score (0-4 normal; 5-9 mild; 10-14 moderate; 15-21 severe): 0 Source: Developed by Drs. Joss Bond, Syeda Wong, Fermin Mueller and colleagues, with an educational valeriy from [employer]. Physical exam (Primary Care) Vital Signs: Last Vital Signs Temp 96.8 F 08/30/25 09:29 Pulse 68 08/30/25 09:29 Resp 16 08/30/25 09:29 BP 110/70 08/30/25 09:29 Pulse Ox 97 08/30/25 09:29 Oxygen Delivery Method Room Air 08/30/25 09:29 BMI result Body Mass Index 25.7 Tobacco/Smoking Status: Tobacco use Status Tobacco use date assessed 01/30/25 08/30/25 09:33 Patient Tobacco Use Status Former Tobacco user 08/30/25 09:33 Tobacco use type Smokeless Tobacco (3mg 08/30/25 09:33 nicotine pouches) e-Cigarette/Vaping Use Former Use 08/30/25 09:33 PHQ-9: PHQ-9 Score PHQ-9: Total score 0 08/30/25 10:12 Thrive Assessment: Date of Thrive Assessment Date Thrive assessed 08/30/25 08/30/25 10:12 Coding Level of Care Code Est Pt Prev Care 40-64y(06206) Diagnoses Routine medical exam Z00.00 Hyperlipidemia, unspecified E78.5 Nicotine dependence, cigarettes, uncomplicated F17.210 Episode of anxiety F41.9 Assessment & Plan Assessment & Plan (1) Routine medical exam: Code(s): Z00.00 - Encounter for general adult medical examination without abnormal findings Category: Medical Plan: 60 year old here for annual exam. Plan as below. (2) Hyperlipidemia, unspecified: Code(s): E78.5 - Hyperlipidemia, unspecified Category: Medical Plan: Not at goal. Total cholesterol 210, LDL 139, goal less than 100. ASCVD 10 year risk 5.5%. Continue with healthy lifestyle. Rechekc lipid panel (3) Nicotine dependence, cigarettes, uncomplicated: Comment: (onset 19yo, 3/4ppd x 40yrs, 30pyh, quit 01/18/25) Code(s): F17.210 - Nicotine dependence, cigarettes, uncomplicated Category: Medical Plan: Commended on cessation. Advised to wean himself from nicotine pouches for dental/gum health and concerns for oral malignancy. Reviewed lung cancer screening CT without any significant findings, category 1. Follow-up in 1 year for repeat testing (4) Episode of anxiety: Code(s): F41.9 - Anxiety disorder, unspecified Category: Medical Plan: Resolved. Continue with balanced diet Plan Routine screening labs as ordered below Continue with screening colonoscopies and PSA Continue following for annual skin exams and use sun protection Annual eye exams Dental exams twice yearly Wear seat belt in car Recommend regular exercise and healthy diet Follow up in 1 year for annual exam Orders: Orders Liver Panel 08/30/25 Z. - Encounter for general adult medical examination without abnormal findings Prostate Specific Antigen 08/30/25 Z. - Encounter for general adult medical examination without abnormal findings Basic Metabolic Panel 08/30/25 Z. - Encounter for general adult medical examination without abnormal findings Lipid Panel 08/30/25 Z. - Encounter for general adult medical examination without abnormal findings Vitamin D 25-OH Total 08/30/25 Z00. - Encounter for general adult medical examination without abnormal findings
[2025-08-30 09:29] VITALS: BP 110/70; PULSE 68; RESP 16; TEMP 36; O2SAT 97; BMI 25.7
== END 2025-08-30 12:12 | disposition home or self-care (01) ==
PROVIDERS: PCP Physician Assistant; Visit Provider Physician Assistant
DX: Z00.00 Encounter for general adult medical examination without abnormal findings (principal); E78.5 Hyperlipidemia, unspecified; F17.210 Nicotine dependence, cigarettes, uncomplicated; F41.9 Anxiety disorder, unspecified